=== PATIENT | male | born 1940 | race Caucasian/White ===

== ENCOUNTER 2017-07-16 11:35 | Inpatient (IN) | payer MEDICARE, OTHER ==
[2017-07-16] VITALS (12 sets, daily range): BP systolic 148–198; BP diastolic 77–103; PULSE 77–100; RESP 16–24; O2SAT 96–98
[~2017-07-16] VITALS: Ht 177.8 cm; Wt 95.2 kg
[~2017-07-16 11:35] MED LIST: CELE200 PO; DOCU-42 PO; GLPZ5T1 PO; GLU500 PO; METO50TA PO; OXYC-176 PO; VIS25 PO; Vancomycin Dose per Pharmacist XX ONE; ZES5 PO
[2017-07-16] MEDS ORDERED: 0.9% Sodium Chloride 1,000 ML IV ONE (11:55)
--- NOTE | 2017-07-16 12:01 | ED.REPORT ---
HPI-Extremity Problem Upper Date of Service Jul 16, 2017 ED Provider: History of Present Illness: 76-year-old male here for urinary incontinence and weakness. Last week he has been incontinent, mainly at night, of urine. He has been weaker, unsteady on his feet and falling more often than usual. Today he or his could not get him up so they called EMS. EMS found his blood sugar to be 34. 3 months ago he restarted on his diabetes and high blood pressure meds. No other cardiac or pulmonary history. No history of UTIs. He denies any cough, chest pain, shortness of breath. Today he states he fell, unsure what body part he landed on, there is a small skin abrasion on R elbow. palpable deformity and tenderness of elbow/distal humerous. pt states this is chronic. He denies hitting his head. He denies neck or back pain. He denies abdominal pain, nausea or vomiting. Nursing Notes Stated Complaint: GLF Nursing Notes Reviewed: Yes Allergies: Coded Allergies: Penicillins (Verified Allergy, Severe, 08/25/09) Scheduled Calcium Carbonate (Calcium Carbonate) 600 Mg Tablet 600 MG PO QAM Glipizide (Glipizide) 10 Mg Tablet 10 MG PO BIDWM Lisinopril / HCTZ 20-25 mg (Lisinopril / HCTZ 20-25 mg) 1 Each Tablet 1 EACH PO QAM Metformin (Glucophage) 1,000 Mg Tablet 1,000 MG PO BIDWM Simvastatin (Simvastatin) 10 Mg Tablet 10 MG PO HS General Time Seen by MD: 11:39 Chief Complaint Arm injury right Hx Obtained From: Patient, Spouse Arrived By: Ambulance Onset Occurred: Just prior to arrival Symptom Duration: 1 week Caused by: Fall on ground Location: : Arm right Severity: Current: Mild Severity: Maximum: Mild Associated with: Reports: Weakness Additional Notes: Urinary incontinence, unsteady on feet Pertinent Negative: Pt denies other symptoms Recent Healthcare: Recent doctor visit Similar Sx Previous: No Past Medical History Past Medical History Notes: DM, HTN Review of Systems Basic Review of Systems Eyes: Vision NL, No discharge ENT: Hearing NL, No pain, No nasal congestion, No pharyngeal pain Respiratory: No shortness of breath, No cough, No wheeze Cardiovascular: No chest pain, No dyspnea on exertion, No orthopnea, No parox noct dyspnea, No palpitations GI: No abdominal pain, No anorexia, No nausea, No vomiting Allergy / Immune: No allergy Psychiatric: Normal thought content Constitutional: Reports: Fatigue, Denies: Chills, Fever Musculoskeletal: Reports: Extremity pain, Denies: Back pain Neurologic: Reports: Bladder dysfunction, Problem walking, Weakness Complete sys rev & neg: except as marked. GI: Denies: Abdominal pain Male: Reports Incontinence Psychiatric: Denies: Anxiety, Change mental status, Confusion, Hallucinations, auditory, Hallucinations, visual Physical Exam Physical Exam Notes: 1500 mL of urine noted in his bladder with Damon insertion. Initial Vital Signs Vital Signs (First) Date Time Temp Pulse Resp B/P Pulse Ox O2 Delivery O2 Flow Rate FiO2 07/16/17 11:48 36.8 96 16 182/103 97 Room Air Initial VS: Reviewed, Vital signs abnormal General/Constitutional: Well-developed, Well-nourished Head / Eyes: Atraumatic, Normocephalic, PERRL ENT: Mucous membranes moist, Conjunctiva normal, No scleral icterus Neck: Supple, Non-tender, Full range of motion Respiratory: Breath sounds normal, Clear to auscultation, No respiratory distress Cardiovascular: Heart sounds normal, Intact distal pulses Neck: Supple, Full range of motion, No swelling, Non-tender Heart Rate / Rhythm: Positive: Tachycardia Skin tear right elbow. Not bleeding. pain at distal humerous, palpable deformity. pt states it is not new, hx of broken arm that is not repairable- [facility] Neurologic: Oriented X3, Speech NL, No motor deficits, No sensory deficits, CN II - XII intact, Memory NL Abdomen: Atraumatic, Soft, Non-tender, No guarding, No rebound, BS normoactive Distended appearing abdomen firm in Center. Nontender Excoriation present around penis and testicles and upper inner thighs. Very red and tender with blisters and sores. After cleansing area for catheter was inserted to prevent further excoriation and sores as he is incontinent. Urine is thick, malodorous, slightly erythematous. Interpretation & Diagnostics Lab Results Interpretation Result Diagram: 07/16/17 1130 07/16/17 1130 Test 07/16/17 11:30 07/16/17 12:35 07/16/17 13:04 White Blood Count 15.0th/mm3 (3.8-10.1) Red Blood Count 4.48mil/mm3 (4.40-5.80) Hemoglobin 13.1g/dL (13.8-17.2) Hematocrit 41.0% (41.0-50.0) Mean Corpuscular Volume 91.5fL (81-100) Mean Corpuscular Hemoglobin 29.2pg (27.0-35.0) Mean Corpuscular Hemoglobin Concent 32.0% (32.0-37.0) Red Cell Distribution Width 15.8% (12.3-15.4) Platelet Count 383bil/L (150-400) Neutrophils (%) (Auto) 85.3% (40-74) Lymphocytes (%) (Auto) 6.8% (14-46) Monocytes (%) (Auto) 6.8% (4-12) Eosinophils (%) (Auto) 0.5% (0-5) Basophils (%) (Auto) 0.2% (0-3) Sodium Level 146mEq/L (134-144) Potassium Level 4.1mEq/L (3.5-5.2) Chloride Level 107mEq/L (97-108) Carbon Dioxide Level 19mmol/L (18-29) Blood Urea Nitrogen 56mg/dL (8-27) Creatinine 2.04mg/dL (0.76-1.27) Estimat Glomerular Filtration Rate 34mL/min (>59) Glucose Level 29mg/dL (60-99) Calcium Level 9.7mg/dL (8.5-10.1) Magnesium Level 2.0mg/dL (1.6-2.6) Total Bilirubin 0.4mg/dL (0.0-1.2) Aspartate Amino Transf (AST/SGOT) 45U/L (0-50) Alanine Aminotransferase (ALT/SGPT) 26U/L (0-44) Alkaline Phosphatase 82U/L (25-160) Troponin T 0.031ug/L (0.0-0.011) Total Protein 8.4g/dL (6.4-8.4) Albumin 4.5g/dL (3.4-5.0) Procalcitonin 0.13ng/mL (0.00-0.08) Lactic Acid Level 0.9mmol/L (0.4-2.0) Urine Color Yellow (YELLOW) Urine Appearance Hazy (CLEAR,HAZY) Urine pH 5.0 (5.0-8.0) Urine Specific [place] 1.012 (1.003-1.035) Urine Protein 30mg/dL (NEG,TRACE) Urine Glucose (UA) Negativemg/dL (NEGATIVE) Urine Ketones Negativemg/dL (NEGATIVE) Urine Occult Blood Large (NEGATIVE) Urine Nitrite Negative (NEGATIVE) Urine Bilirubin Negative (NEGATIVE) Urine Urobilinogen Normalmg/dL (NORMAL) Urine Leukocyte Esterase Negative (NEGATIVE) Urine RBC Packed/hpf (0-2) Urine WBC 0-5/hpf (0-5) Urine Epithelial Cells Few/hpf (NONE-MOD) Urine Crystals None seen (NONE SEEN) Urine Bacteria None/hpf (NONE-FEW) Urine Hyaline Casts None/lpf (NONE) Urine Granular Casts None seen (NONE SEEN) Urine Waxy Casts None seen (NONE SEEN) Urine Red Blood Cell Casts None seen (NONE SEEN) Urine White Blood Cell Casts None seen (NONE SEEN) Urine Mucus None seen (None Seen) Urine Trichomonas None seen (NONE SEEN) Urine Yeast None (NONE SEEN) Urinalysis Comment None Urine Culture Reflexed Not indicated Urine Random Creatinine 48mg/dL (22-328) Urine Random Total Protein 87mg/dL (0-15) Urine Protein/Creatinine Ratio 1.81 (0-200) X-Ray Chest Interpretation Chest Xray Interpretation: PROCEDURE: X-RAY CHEST ONE VIEW, PORTABLE ([id number]) INDICATIONS: fall TECHNIQUE: One view of the chest was acquired. COMPARISON: None. FINDINGS: Surgical changes and devices: ORIF of right humerus. Lungs and pleura: No pleural effusions or pneumothorax. Lungs are clear. Mediastinum: Mediastinal contours appear normal. Heart size is normal. Bones and chest wall: No suspicious bony lesions. Overlying soft tissues appear unremarkable. IMPRESSION: No acute process. X-Ray Interpretation Xray Interpretation: PROCEDURE: X-RAY RIGHT ELBOW, TWO VIEWS ([id number]) INDICATIONS: pain, hx fx TECHNIQUE: 2 views of the elbow were acquired. COMPARISON: None. FINDINGS: Bones: No fractures or dislocations. No suspicious bony lesions. Soft tissues: No elbow joint effusion. No suspicious soft tissue calcifications. Multiple screws project over the soft tissues of the distal upper arm. IMPRESSION: Multiple screws projecting over the soft tissues. No acute fracture. No osseous lesion. If clinical suspicion and/or symptoms persist, further assessment with repeat plainfilms, or advanced imaging (e.g., CT, MRI, or bone scan) may be helpful for further assessment. Re-Eval/Medical Decision Med Decision/Clinical Course [address] moya, agrees 1435- Dr isidoro robledo examined pt. will get elbow xray, will dose with vancomycin for possible MRSA of groin. already recieved rocephin 2 gram. pt stable in room, eating. Xray stable- no new findings. 1510-pt to floor Discharge & Departure Shift Change Sign-Out Imaging Studies: Imaging discussed Procedures: Results discussed Response to Therapy: Improved Impression: Primary Impression: Hypoglycemia Additional Impressions: Cellulitis of male genitalia Elevated troponin I level Weakness Urinary retention Disposition: ADMITTED TO HOSPITAL Discharge Condition All VS Reviewed: Yes Condition: Stable EDSupervising Provider for APC: Abdirizak Kate MD Attending Statement I discussed patient with SIMONA Long. I evaluated the patient independently and agree with plan as above. In brief, 76-year-old male presenting with hypoglycemia. He also has a questionable scrotal cellulitis. Urine does not suggest infection. He has no complaints to me on my exam. He will be admitted to hospital. Vancomycin given for cellulitis. copies to: Abdirizak Kate MD, Linnea K ARNP Jul 16, 2017 12:01 Abdirizak Kate MD Jul 16, 2017 16:22
--- NOTE | 2017-07-16 12:14 | DRSVH ---
PROCEDURE: X-RAY CHEST ONE VIEW, PORTABLE ([id number]) INDICATIONS: fall TECHNIQUE: One view of the chest was acquired. COMPARISON: None. FINDINGS: Surgical changes and devices: ORIF of right humerus. Lungs and pleura: No pleural effusions or pneumothorax. Lungs are clear. Mediastinum: Mediastinal contours appear normal. Heart size is normal. Bones and chest wall: No suspicious bony lesions. Overlying soft tissues appear unremarkable. IMPRESSION: No acute process. Dictated by: Nisha Lui M.D. on 07/16/2017 at 12:11 Approved by: Nisha Lui M.D. on 07/16/2017 at 12:13
[2017-07-16] MEDS ORDERED: cefTRIAXone Inj 2,000 MG in Dextrose 5% Minibag Plus 50 ML IV ONE (12:15)
[2017-07-16 12:32] LABS: BASOPHILS % (AUTO) 0.2 % (0-3); EOSINOPHILS % (AUTO) 0.5 % (0-5); MONOCYTES % (AUTO) 6.8 % (4-12); Mean Corpuscular Hemoglobin 29.2 pg (27.0-35.0); Mean Corpuscular Volume 91.5 fL (81-100); NEUTROPHILS % (AUTO) 85.3 % (40-74); Platelet Count 383 bil/L (150-400)
[2017-07-16 12:42] LABS: TROPONIN T 0.031 ug/L (0.0-0.011)
[2017-07-16 13:33] LABS: APPEARANCE,URINE HAZY (CLEAR,HAZY); COLOR,URINE YELLOW (YELLOW)
[2017-07-16 13:35] LABS: OCCULT BLOOD,URINE LARGE (NEGATIVE); UROBILINOGEN,URINE NORMAL (NORMAL)
[2017-07-16] MEDS ORDERED: Dextrose 10% 250 ML IV ONE (14:05)
[2017-07-16] MEDS ORDERED: GLIP10TA10 PO (14:25)
[2017-07-16] MEDS ORDERED: CALC600T87 PO (14:25)
[2017-07-16] MEDS ORDERED: LISI1TAB11 PO (14:25)
[2017-07-16] MEDS ORDERED: METF1000 PO (14:25)
[2017-07-16] MEDS ORDERED: SIMV10TA4 PO (14:25)
[2017-07-16] MEDS ORDERED: Labetalol 5 mg/mL 20 mL Inj IVPUSH ONE ×2 (14:40→19:30)
[2017-07-16] MEDS ORDERED: Glucose 40% Oral Gel 15 Gm Tube PO PRN (14:40)
[2017-07-16] MEDS ORDERED: Ondansetron 2 mg/mL 2 mL Inj IVPUSH PRN (14:40)
[2017-07-16] MEDS ORDERED: Polyethylene Glycol (PEG) 17 Gm Powder PO PRN (14:40)
[2017-07-16] MEDS ORDERED: Alum-Mag Hydrox-Simeth 30 mL Suspension PO PRN (14:40)
[2017-07-16] MEDS ORDERED: Dextrose 10% 250 ML IV PRN (14:50)
[2017-07-16] MEDS ORDERED: Vancomycin Inj 2,000 MG in 0.9% Sodium Chloride 500 ML IV ONE (14:55)
--- NOTE | 2017-07-16 15:00 | DRSVH ---
PROCEDURE: X-RAY RIGHT ELBOW, TWO VIEWS ([id number]) INDICATIONS: pain, hx fx TECHNIQUE: 2 views of the elbow were acquired. COMPARISON: None. FINDINGS: Bones: No fractures or dislocations. No suspicious bony lesions. Soft tissues: No elbow joint effusion. No suspicious soft tissue calcifications. Multiple screws p roject over the soft tissues of the distal upper arm. IMPRESSION: Multiple screws projecting over the soft tissues. No acute fracture. No osseous lesion. I f clinical suspicion and/or symptoms persist, further assessment with repeat plainfilms, or advanced imaging (e.g., CT, MRI, or bone scan) may be helpful for further assessment. Dictated by: Nisha Lui M.D. on 07/16/2017 at 14:58 Approved by: Nisha Lui M.D. on 07/16/2017 at 14:59
[2017-07-16] MEDS: Insulin LISPRO 300 Unit/3 mL Inj SUBQ SCH ×2 (17:30→21:21)
[2017-07-16] MEDS: Linezolid Inj 600 MG in IV Premix 1 EACH IV SCH (18:31)
--- NOTE | 2017-07-16 18:37 | PCM.HPMED ---
Subjective Date of Service Jul 16, 2017 Primary Provider: Admitting Physician: Los Arambula MD [facility] Attending Physician: Los Arambula MD Admit Status: From the Emergency Department Chief Complaint: Weakness History of Present Illness: Dimitri Giffrod is a 76-year-old man with past medical history remarkable for hypertension and type II diabetes mellitus [id number] who presents to the [facility] ED by EMS after a ground-level fall and unable to get up. The patient lives alone and does not use a walker or cane to ambulate and states that his been having increasing difficulty with ambulation. He does not walk often for exercise typically only around his trailer into his car and back. The patient states that today he fell and was unable to get up so a neighbor called for help. The patient denies any pain or injury from the fall at this time. The patient has noticed increased urinary frequency but denies any increased urgency or pain on urination or pain with defecation. The patient denies any unusual urethral discharge. The patient denies any risky sexual contact or ever having a history of sexually transmitted disease. The patient recently started oral antihyperglycemic medication by a [place] physician. The patient states that prior to several years ago he had not been seen by a physician he denies any history of chronic kidney disease or ever being told that he has protein or blood in his urine. Patient denies chest pain, belly pain, shortness of breath, nausea, diarrhea, headaches, swelling in his hands or feet. Review of Systems: A comprehensive review of systems is done and all are negative except for what is included in the history of present illness. Allergies Coded Allergies: Penicillins (Verified Allergy, Severe, 08/25/09) Home Medications Calcium Carbonate (Calcium Carbonate) 600 Mg Tablet 600 MG PO QAM Glipizide (Glipizide) 10 Mg Tablet 10 MG PO BIDWM Lisinopril / HCTZ 20-25 mg (Lisinopril / HCTZ 20-25 mg) 1 Each Tablet 1 EACH PO QAM Metformin (Glucophage) 1,000 Mg Tablet 1,000 MG PO BIDWM Simvastatin (Simvastatin) 10 Mg Tablet 10 MG PO HS PMH High blood pressure Type 2 Diabetes mellitus [id number] Surgical History Right arm ORIF for a humeral fracture in 2008 Ruptured appendix in the 1980s Left leg surgery for fracture Family History Patient's mother in her late 80s from an unknown heart condition Patient's father in his late 80s from an unknown cancer Patient has a sister alive 97 years old reportedly healthy Patient has a brother alive at 85 on no medications Social History Occupation: retired Hx Alcohol Use: No Hx Substance Use: No Hx Tobacco Use: Yes Smoking Status: Former Smoker Years of Smokin Living Arrangement: Alone Exam Vital Signs Vital Sign - Last Date Time Temp Pulse Resp B/P Pulse Ox O2 Delivery O2 Flow Rate FiO2 07/16/17 16:48 148/78 07/16/17 15:54 93 07/16/17 15:34 36.9 16 97 Room Air Exam General: Elderly male appearing in no acute distress lying comfortably in bed Eyes: Pupils equal round and reactive to light, extraocular motion intact, anicteric sclera, noninjected conjunctiva HENT: Normocephalic atraumatic, moist mucous membranes without central cyanosis , oropharynx clear without purulent exudate or cobblestoning mucosa, notable rhinophyma Neck: Supple, trachea midline, without thyromegaly or JVD Cardiovascular: Regular rate and regular rhythm, S1-S2 present, systolic ejection murmur noted at right upper sternal border, no rubs or gallops noted Lungs: Clear to auscultation bilaterally without wheezing rales or rhonchi Abdomen: Lower old midline surgical scar, Soft, nontender, protuberant but nondistended, tympanic to percussion, normal active bowel sounds, without organomegaly Extremities: No cyanosis clubbing or edema noted, pulses intact bilaterally at dorsalis pedis and radial : Damon catheter in place with some blood noted in the tubing, notable redness and warmth over scrotum and penis without noted ulcerations however nursing had applied cream and powder previously making visualization difficult Skin: Warm and dry MSK: Strength intact bilaterally at wrapper cashier, plantar and dorsi flexion, biceps and triceps not tested due to chronic pain in his right upper extremity since ORIF in 2008 Neuro: Nonfocal neurologic exam, cranial nerves II through XII intact, sensation intact in extremities Psych: Normal mood and affect Lab and Diagnostics Result Diagram: 07/16/17 1130 07/16/17 1130 X-Rays, CTs and MRIs X-RAY RIGHT ELBOW, TWO VIEWS IMPRESSION: Multiple screws projecting over the soft tissues. No acute fracture. No osseous lesion. If clinical suspicion and/or symptoms persist, further assessment with repeat plainfilms, or advanced imaging (e.g., CT, MRI, or bone scan) may be helpful for further assessment. Approved by: Nisha Lui M.D. on 07/16/2017 at 14:59 X-RAY CHEST ONE VIEW, PORTABLE IMPRESSION: No acute process. Approved by: Nisha Lui M.D. on 07/16/2017 at 12:13 Assessment & Plan Dimitri Gifford is a 76-year-old man with past medical history remarkable for hypertension and type II diabetes mellitus [id number] who presents to the [facility] ED by EMS after a ground-level fall and unable to get up. Acute hypoglycemia in chronic type II diabetes mellitus dnu-njezotn-cjctzrzhi - Glucose of 56 noted at admission - The patient admits to being recently started on oral anti-hyperglycemics glipizide, low blood glucose could explain weakness and difficulty ambulating however patient explains that this has been a chronic ongoing process of worsening weakness and difficulty ambulating - IV dextrose given an ED, with subsequent improvement in blood glucose - Holding glipizide - Low-dose correction scale insulin while inpatient and monitor for hypoglycemic episodes - Diabetic diet - A1c ordered - Monitor Acute cellulitis of the inguinal and genitals - WBC count of 15,000 with neutrophil predominance of 85% consistent with possible bacterial infection, pro-calcitonin appears negative at 0.13 - Noted redness and very mild tenderness to palpation of the area however the patient was unaware of this and unconcerned - ED did initially consider possible urinary tract infection with overlying cellulitis given imbalance and increased urinary frequency and started the patient on Rocephin, and vancomycin for cellulitis - UA was negative for signs of infection, however nursing staff noted possible purulent drainage around Damon catheter - Chlamydia and gonorrhea NAAT - Rocephin and linezolid for cellulitis possibly associated with urinary tract sources - Nystatin cream and powder for possible yeast infection Acute kidney injury with Acute hematuria - Creatinine of 2 on admission no baseline laboratories at this time as last time the patient was admitted with some 2009 - Blood noted on UA with packed RBCs, Likely secondary to traumatic Damon placement as UA noted packed RBCs however Damon tubing appears to have streaked blood - Consideration for possible chronic prostatitis with chronic increased urinary frequency however would expect to see some bacteria in urine - Patient likely has some chronic kidney disease given long-standing hypertension and type II diabetes mellitus - [facility] depending [facility] improvement overnight - Renal ultrasound ordered given considerable hypertension - Urine protein creatinine ratio ordered Chronic deconditioning - Patient describes only thing brought into the hospital due to an inability to get up after falling, the patient states that he does not use a cane or walker to ambulate but he believes that he should at least use a cane - PT evaluation Acute on chronic hypertension - Patient describes a baseline blood pressure above 150 with previous regular highs in the 190s - Systolic blood pressure of up to 190 on admission improved to 148 without medication - Patient is on lisinopril hydrochlorothiazide which will be held given the AK I - Labetalol IV 10 mg available when necessary for systolic blood pressures greater than 160 if pulse is greater than 70 Acute elevated troponins of unknown significance - Likely related to elevated creatinine which is possibly baseline - Urine protein creatinine ratio to determine significance of kidney disease - Patient denies chest pain, nausea, shortness of breath - Monitor DVT prophylaxis: Heparin GI prophylaxis: None indicated CODE STATUS is full code The patient is admitted to observation status with expected length of stay less than 2 midnights given presenting symptoms likely diagnosis, possible complications, and require treatments. Pain Evaluation: Adequate Pain Control GI Prophylaxis: Not indicated VTE Prophylaxis: Sub-Q Heparin (Unfractionated) Attending Statement The patient was seen and examined together with Dr. Landon on 07/16/2017 and I agree with the history, exam and plan as outlined in the note above. Ron Landon DO Jul 16, 2017 18:37 Los Arambula MD Jul 20, 2017 10:14
[2017-07-17] VITALS (7 sets, daily range): BP systolic 133–198; BP diastolic 72–104; PULSE 62–84; RESP 20–22; O2SAT 95–97
[2017-07-17] MEDS: Heparin 5,000 Unit/mL Inj SUBQ SCH ×3 (01:23→17:37)
[2017-07-17] MEDS ORDERED: Labetalol 5 mg/mL 20 mL Inj IVPUSH PRN (05:15)
[2017-07-17] MEDS: Linezolid Inj 600 MG in IV Premix 1 EACH IV SCH ×2 (06:01→07:59)
--- NOTE | 2017-07-17 06:29 | NUR ---
Restless Assumed care of pt at 1930. Pt. a/o, denies pain, or discomfort with the exception being hungry. Waiting on [facility] to complete evaluation, USD postponed eval. until Monday am - pt. received meal as ordered. NPO after midnight. Remains hypertensive as charted, notified (Barrera) orders received for 2nd dose 10mg Labetolol - given. Tele: SR rate in the 60's.
[2017-07-17] MEDS: Insulin LISPRO 300 Unit/3 mL Inj SUBQ SCH ×4 (07:57→21:02)
[2017-07-17] MEDS: cefTRIAXone Inj 2,000 MG in Dextrose 5% Minibag Plus 50 ML IV SCH (08:05)
--- NOTE | 2017-07-17 10:37 | NUR ---
Social Work: Initial Assessment/Multidisciplinary Rounds D: Per EMR review, pt is a 76 year old male admitted for hypoglycemia, elevated trop. Patient has opted to use his [facility] benefits for admission; patient also has Medicare part A & B with no supplement or LTC. PCP is through the [facility]. NOK is Viviana alcala, spouse, . Advanced directives not completed- information provided. Readmit score is low, 1/8. Pt discussed in Multidisciplinary rounds. Capacity for self care discussed; patient is I at baseline and lives with his . PT has completed assessment with recommendation for SNF. The patient might be able to use his VA benefit for SNF stay as he is currently listed as n observation patient. GEOSPATIAL TECHNOLOGIST met with the patient and at bedside. Social work/dcp role explained, contact information and discharge planning checklist provided. See initial assessment. Patient lives with his in an RV in [place] with 5 steps to enter. patient uses no DME but will require a platform walker per PT. Patient has never had HH or Skilled rehab. GEOSPATIAL TECHNOLOGIST introduced the topic of discharge planning including HH or SNF. Patient and are both receptive to the SNF option and would prefer to stay in [place] if possible. GEOSPATIAL TECHNOLOGIST explained possible barriers to this occurring specifically if patient had to use his VA benefit for SNF. They are receptive to exploring all the [place] SNF contracts. [facility] SNF CHOICE LIST PROVIDED. If they had to use VA benefits their 1st preference would be for [facility] in [place] with their second being [facility] in [place]. Orders have not been placed at this time; GEOSPATIAL TECHNOLOGIST has alerted [employer] Systems Administrator to patient's preferences and will provide referrals once CM orders are finalized. A: Pt who will likely require skilled rehab at time of discharge for continued strengthening. Patient currently listed at observation and will need to use VA benefits for SNF. P: Evolving; Case management to provide referrals to pt's SNF preferences once orders are received. GEOSPATIAL TECHNOLOGIST to continue to follow to assess for unmet discharge needs and to determine if patient may be eligible to use Medicare Benefits if patient meets inpatient criteria and has qualifying stay. GERALD Morillo Addendum: 07/17/17 at 1049 by INGRID CAAL SS Amended: Links added.
--- NOTE | 2017-07-17 10:54 | NUR ---
Swallow eval order cancelled. Per nursing no concerns re: dysphagia. Re-refer to ST with new/worsening symptoms.
--- NOTE | 2017-07-17 11:20 | NUR ---
Spoke with Kathleen at [facility] in patient access, this patient is non service connected but also hold MCR A & B. [facility]NER note and this patient will not have coverage for SNF under his benefits since there is no service connection. Patient is currently in OBS status and we can not send referrals that will be covered by insurance. Updated BUSINESS PARTNER
[2017-07-17 12:21] LABS: BASOPHILS % (AUTO) 0.3 % (0-3); EOSINOPHILS % (AUTO) 0.7 % (0-5); MONOCYTES % (AUTO) 9.5 % (4-12); Mean Corpuscular Hemoglobin 29.8 pg (27.0-35.0); Mean Corpuscular Volume 91.1 fL (81-100); Platelet Count 250 bil/L (150-400)
--- NOTE | 2017-07-17 13:08 | NUR ---
ST unable to complete swallow eval. Unable to complete swallow eval due to pt NPO status for procedure. RN reports pt choking on his own saliva. ST to re-attempt eval tomorrow.
[2017-07-17] MEDS: Nystatin 100,000 Unit/Gm 15 Gm Powder TOPICAL SCH ×2 (13:15→21:01)
--- NOTE | 2017-07-17 14:31 | NUR ---
High BP Pt BP 199/99. HR 69, MD aware. Pt administered 10mg Labetalol IV push. Will continue to monitor. Addendum: 07/17/17 at 1512 by GAVIOTA ROSARIO RN BP reassessed at 190/95. Pt administered PO 100mg Labetalol and 2.5mg PO amlodipine per orders. Will continue to monitor.
--- NOTE | 2017-07-17 15:00 | NUR ---
Case Management: Clarification of patient status: inpatient per MD order 07/17/17. Valerie Hankins RN
--- NOTE | 2017-07-17 15:52 | NUR ---
Inpatient Wound Nurse Patient seen for pressure injury to soft tissue of plantar surfaces of most toes due to overgrown toenails. He also has skin tear to R elbow. All nails are grossly overgrown, blackened, and crumbling with fungus. Multiple nails noted with onychogryphosis, growing into medial/lateral and plantar surfaces of toes. Most nails would be benefitted from sanding debridement which is not completed in hospital setting due to release of airborne irritants. Nails were trimmed back as well as possible with clippers and edges cleaned. Multiple areas of stage 1 PI improved by end of care, within approximately 30 minutes. A small tear to L great toe was sustained, this coagulated within a couple of minutes and required no dressing. R great toe is grossly thickened and unable to be pared down with clippers. A grade 3 skin tear is noted to R elbow, about 3 cm L x 1.5 cm W. Since no debridement is needed for this wound, no clear-adhesive dressing is advised. Once clear adhesive dressing was removed, a layer of thin, yellow slough was cleansed away with NS and sterile gauze. Wound bed dull pink and firm. Wound was covered with bordered 4x4 Mepilex. Patient is unable to manage hygiene independently. He should see podiatry or certified foot care nurse for ongoing foot care needs.
--- NOTE | 2017-07-17 17:01 | DRSVH ---
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 COMPARISON: None. FINDINGS: Aortic peak systolic velocity: Not well-seen. Right side: Miller-scale imaging: Kidney is 14.1 cm long; renal cortical thickness is 1.7 cm. there is moderate h ydronephrosis. No nephrolithiasis. Renal cortex is normal in echogenicity. No suspicious solid cecilia al masses. Proximal renal artery peak systolic velocity: Not seen Mid renal artery peak systolic velocity: Not seen Distal renal artery peak systolic velocity: 48 cm/s. Renal vein: Patent, without thrombus. Peak renal/aortic ratio (RAR): N./A. Left side: Miller-scale imaging: Kidney is 14.6 cm long; renal cortical thickness is 1.3 cm. there is moderate h ydronephrosis. Multiple left-sided renal stones are seen. The largest measures up to 1.6 cm, inferi konstantin. Renal cortex is normal in echogenicity. No suspicious solid renal masses. A simple appearing left renal cyst is seen that measures 4.9 x 4 x 4.3 cm. Proximal renal artery peak systolic velocity: Not seen Mid-renal artery peak systolic velocity: Not seen Distal renal artery peak systolic velocity: Not seen Renal vein: Patent, without thrombus. Peak renal/aortic ratio (RAR): N./A. The bladder is grossly enlarged, measuring greater than 5 L. A Damon catheter is present. IMPRESSION: Moderate hydronephrosis with a grossly distended urinary bladder. The Damon catheter is regarded to be nonfunctional. Poor visualization of numerous arterial structures. The study is nondiagnostic for renal artery sten osis. Nonobstructing left-sided kidney stones are seen. Incidental note is made of: 4.9 cm renal cyst Note: Concordant preliminary findings given by the petrographer upon the completion of the examination to nurse Negin Sousa at 4:29 PM on July 17, 2017. Dictated by: David Doshi M.D. on 07/17/2017 at 16:54 Approved by: David Doshi M.D. on 07/17/2017 at 16:58
--- NOTE | 2017-07-17 17:12 | PCM.PNMED ---
Subjective Date of Service Jul 17, 2017 Subjective Patient was seen and examined. Patient is resting comfortably in bed. Physical therapy came by to work with patient today, but stated that his toenails were too long to safely ambulate. Wound care thankfully came later in the day and clipped his toenails. No acute overnight events. Exam Vital Signs Vital Sign - Last Date Time Temp Pulse Resp B/P Pulse Ox O2 Delivery O2 Flow Rate FiO2 07/17/17 16:36 36.9 66 20 151/72 95 Room Air Intake and Output 07/16/17 07/16/17 07/17/17 Cumulative From/Thru 15:00 23:00 07:00 07/16/17 11:48 - 07/17/17 06:09 Intake Total 1250 ml 0 ml 720 ml 1970 ml Output Total 1500 ml 200 ml 1700 ml Balance -250 ml 0 ml 520 ml 270 ml Intake Oral 0 ml 400 ml 400 ml IV Total 1250 ml 320 ml 1570 ml Output Urine Total 1500 ml 200 ml 1700 ml Exam General: No acute distress, well-developed, well-nourished, appropriately interactive HEENT: Normocephalic, atraumatic. External ears without defect. Pupils equal, round, and reactive to light and accommodation. Anicteric sclerae, moist conjunctivae, and no lid lag. Oropharynx free of erythema and cobble stoning with moist mucosa. Neck: Supple with full range of motion. No jugular venous distension. No bruits. No lymphadenopathy or thyromegaly. Cardiovascular: Regular rate and rhythm with 2/6 pansystolic murmur Pulmonary: Clear to auscultation bilaterally with no crackles, wheezes, or rhonchi. Normal respiratory effort with no use of accessory muscles. Abdomen: Bowel tones present. Abdomen is firm, but nontender and nondistended. No masses noted. Damon catheter in place with pink tinged fluid in tube. Extremities: Toenails are long and curling over his toes posteriorly. No peripheral edema. Skin: Bilateral erythematous nonraised rash on inner thighs covered with nystatin cream. Patient states it is nontender. Neurological: Cranial nerves grossly intact. Normal muscle strength, tone, and bulk. Reflexes, coordination, and sensory function within normal limits. No known gait impairment. Psychiatric: Normal mood and affect. Alert and oriented to person, place, and time. IVs and Medications Medications Reviewed: Medications were reviewed in detail Lab and Diagnostics Result Diagram: 07/17/17 1215 07/17/17 1215 X-Rays, CTs and MRIs X-RAY RIGHT ELBOW, TWO VIEWS IMPRESSION: Multiple screws projecting over the soft tissues. No acute fracture. No osseous lesion. If clinical suspicion and/or symptoms persist, further assessment with repeat plainfilms, or advanced imaging (e.g., CT, MRI, or bone scan) may be helpful for further assessment. Approved by: Nisha Lui M.D. on 07/16/2017 at 14:59 X-RAY CHEST ONE VIEW, PORTABLE IMPRESSION: No acute process. Approved by: Nisha Lui M.D. on 07/16/2017 at 12:13 Additional Diagnostics Renal artery ultrasound performed 07/17/2017 IMPRESSION: Moderate hydronephrosis with a grossly distended urinary bladder. The Damon catheter is regarded to be nonfunctional. Poor visualization of numerous arterial structures. The study is nondiagnostic for renal artery stenosis. Nonobstructing left-sided kidney stones are seen. Assessment & Plan Dimitri Gifford is a 76-year-old man with past medical history remarkable for hypertension and type II diabetes mellitus [id number] who presents to the [facility] ED by EMS after a ground-level fall and unable to get up. Acute hypoglycemia in chronic type II diabetes mellitus [id number] - Glucose of 56 noted at admission - The patient admits to being recently started on oral anti-hyperglycemics glipizide, low blood glucose could explain weakness and difficulty ambulating however patient explains that this has been a chronic ongoing process of worsening weakness and difficulty ambulating - IV dextrose given an ED, with subsequent improvement in blood glucose - Holding glipizide - Low-dose correction scale insulin while inpatient and monitor for hypoglycemic episodes - Diabetic diet - A1c 5.6 - Monitor Acute cellulitis of the inguinal and genitals - WBC count downtrending, pro-calcitonin appears negative at 0.17 - Continue Rocephin for possible cellulitis discontinue linezolid and vancomycin - UA was negative for signs of infection, however nursing staff noted possible purulent drainage around Damon catheter - Chlamydia and gonorrhea NAAT - Nystatin powder for possible yeast infection Acute kidney injury with Acute hematuria - Creatinine of 2 on admission no baseline laboratories at this time as last time the patient was admitted with some 2009 - Blood noted on UA with packed RBCs, Likely secondary to traumatic Damon placement as UA noted packed RBCs however Damon tubing appears to have streaked blood - Consideration for possible chronic prostatitis with chronic increased urinary frequency however would expect to see some bacteria in urine - Patient likely has some chronic kidney disease given long-standing hypertension and type II diabetes mellitus - [facility] - Renal ultrasound performed today demonstrating a severely distended bladder with moderate hydronephrosis - Reevaluate Damon patency - Urine protein creatinine ratio 1.81 Chronic deconditioning - Patient describes only thing brought into the hospital due to an inability to get up after falling, the patient states that he does not use a cane or walker to ambulate but he believes that he should at least use a cane - PT evaluation now that his toenails have been clipped Acute on chronic hypertension - Patient describes a baseline blood pressure above 150 with previous regular highs in the 190s - Systolic blood pressure of up to 190 on admission improved to 148 without medication, but spiked today requiring antihypertensive medications - Patient is on lisinopril hydrochlorothiazide which will be held given the AK I - Labetalol IV 10 mg available when necessary for systolic blood pressures greater than 160 if pulse is greater than 70 - Started on amlodipine2.5mg QD and labetalol 100 mg by mouth twice a day Acute elevated troponins of unknown significance - Likely related to elevated creatinine which is possibly baseline - Patient denies chest pain, nausea, shortness of breath - Monitor DVT prophylaxis: Heparin GI prophylaxis: None indicated CODE STATUS is full code GI Prophylaxis: Not indicated VTE Prophylaxis: Sub-Q Heparin (Unfractionated) Resuscitation Status: CPR: Attempt Resuscitation Attending Statement The patient was seen and examined together with Dr. Medina on 07/17/17 and I have added additional information to the note above. Zack Medina DO Jul 17, 2017 17:12 Chelo Martinez DO Jul 17, 2017 17:52
--- NOTE | 2017-07-17 17:48 | NUR ---
Case Management: IMM explained to patient at 1730, all questions answered. Signed original placed in chart, copy given to patient. Pt requested Medicare be noted as primary insurance as he is not [facility]. Marisol Godfrey RN
[2017-07-18] VITALS (8 sets, daily range): BP systolic 115–181; BP diastolic 62–98; PULSE 56–74; RESP 16–20; O2SAT 95–97
[2017-07-18] MEDS: Heparin 5,000 Unit/mL Inj SUBQ SCH ×4 (01:24→23:41)
[2017-07-18 04:21] LABS: BASOPHILS % (AUTO) 0.2 % (0-3); EOSINOPHILS % (AUTO) 1.7 % (0-5); MONOCYTES % (AUTO) 9.8 % (4-12); Mean Corpuscular Hemoglobin 29.4 pg (27.0-35.0); Mean Corpuscular Volume 92.2 fL (81-100); NEUTROPHILS % (AUTO) 77.6 % (40-74); Platelet Count 231 bil/L (150-400)
--- NOTE | 2017-07-18 05:37 | NUR ---
Urine output/Rest Assumed care ~1930, a/o, denies pain or discomfort. Damon irrigation performed - output this shift >1000 mL pink tinged urine. Indication of confusion r/t glucose checks and BS management, will request MD to address diabetes education. Rested for extended period, with eyes closed. VSS, Tele: SR 60's - 70's.
[2017-07-18] MEDS: Insulin LISPRO 300 Unit/3 mL Inj SUBQ SCH ×4 (08:59→20:33)
[2017-07-18] MEDS: Nystatin 100,000 Unit/Gm 15 Gm Powder TOPICAL SCH ×2 (09:01→20:32)
[2017-07-18] MEDS: cefTRIAXone Inj 2,000 MG in Dextrose 5% Minibag Plus 50 ML IV SCH (09:02)
--- NOTE | 2017-07-18 09:25 | NUR ---
Diet: pt tolerating diet with no s/s aspiration. Swallow evaluation not warranted for this pt; re-refer to ST with new/worsening symptoms.
--- NOTE | 2017-07-18 11:33 | PCM.PNMED ---
Subjective Date of Service Jul 18, 2017 Subjective Patient is seen resting comfortably in bed. He denies any discomfort. This is of great surprise however, as it was discovered on his CT of his abdomen and pelvis today that he had a severely distended urinary bladder with moderate bilateral hydronephrosis and a Damon catheter which was seen to be positioned in the patient's prostate. The nurse advanced the Damon catheter and promptly drained over 5 L of urine within 20 minutes. Exam Vital Signs Vital Sign - Last Date Time Temp Pulse Resp B/P Pulse Ox O2 Delivery O2 Flow Rate FiO2 07/18/17 11:21 72 07/18/17 08:00 36.7 20 181/88 97 Room Air Intake and Output 07/17/17 07/17/17 07/18/17 Cumulative From/Thru 15:00 23:00 07:00 07/16/17 11:48 - 07/18/17 06:30 Intake Total 375 ml 400 ml 2745 ml Output Total 900 ml 1075 ml 3675 ml Balance -525 ml -675 ml -930 ml Intake Oral 0 ml 400 ml 800 ml IV Total 375 ml 1945 ml Output Urine Total 900 ml 1075 ml 3675 ml Exam General: No acute distress, well-developed, well-nourished, appropriately interactive HEENT: Normocephalic, atraumatic. Neck: Supple with full range of motion. No jugular venous distension. No bruits. No lymphadenopathy or thyromegaly. Cardiovascular: Regular rate and rhythm with systolic ejection murmur noted over right sternal border Pulmonary: Clear to auscultation bilaterally with no crackles, wheezes, or rhonchi. Normal respiratory effort with no use of accessory muscles. Abdomen: Bowel tones present. Firm, nontender, with a large mass palpable in the epigastric area. CT scan revealed this to be a distended urinary bladder. Extremities: No clubbing, cyanosis, edema, or lymphadenopathy appreciated. Skin: Cellulitis of inguinal region appears to be much improving with decreased erythema and no tenderness Neurological: Cranial nerves grossly intact. Normal muscle strength, tone, and bulk. Psychiatric: Normal mood and affect. Alert and oriented to person, place, and time. IVs and Medications Medications Reviewed: Medications were reviewed in detail Lab and Diagnostics Result Diagram: 07/18/17 0400 07/18/17 0400 X-Rays, CTs and MRIs X-RAY RIGHT ELBOW, TWO VIEWS IMPRESSION: Multiple screws projecting over the soft tissues. No acute fracture. No osseous lesion. If clinical suspicion and/or symptoms persist, further assessment with repeat plainfilms, or advanced imaging (e.g., CT, MRI, or bone scan) may be helpful for further assessment. Approved by: Nisha Lui M.D. on 07/16/2017 at 14:59 X-RAY CHEST ONE VIEW, PORTABLE IMPRESSION: No acute process. Approved by: Nisha Lui M.D. on 07/16/2017 at 12:13 Additional Diagnostics Renal artery ultrasound performed 07/17/2017 IMPRESSION: Moderate hydronephrosis with a grossly distended urinary bladder. The Damon catheter is regarded to be nonfunctional. Poor visualization of numerous arterial structures. The study is nondiagnostic for renal artery stenosis. Nonobstructing left-sided kidney stones are seen. Assessment & Plan Dimitri Gifford is a 76-year-old man with past medical history remarkable for hypertension and type II diabetes mellitus [id number] who presents to the [facility] ED by EMS after a ground-level fall and unable to get up. Acute hypoglycemia in chronic type II diabetes mellitus [id number] - Glucose of 56 noted at admission - The patient admits to being recently started on oral anti-hyperglycemics glipizide, low blood glucose could explain weakness and difficulty ambulating however patient explains that this has been a chronic ongoing process of worsening weakness and difficulty ambulating - IV dextrose given an ED, with subsequent improvement in blood glucose - Holding glipizide - Low-dose correction scale insulin while inpatient and monitor for hypoglycemic episodes - Diabetic diet - A1c 5.6 - Monitor Acute cellulitis of the inguinal and genitals, stable - WBC count downtrending and erythema is decreasing - Continue Rocephin for possible cellulitis - UA was negative for signs of infection, however nursing staff noted possible purulent drainage around Damon catheter - Chlamydia and gonorrhea NAAT - Nystatin powder for possible yeast infection Acute kidney injury with Acute hematuria, active - Creatinine of 2 on admission no baseline laboratories at this time as last time the patient was admitted with some 2009 - Blood noted on UA with packed RBCs, Likely secondary to traumatic Damon placement. - Patient likely has some chronic kidney disease given long-standing hypertension and type II diabetes mellitus - Renal ultrasound performed demonstrating a severely distended bladder with moderate hydronephrosis - Damon catheter was flushed, and repeated bladder scans demonstrated residuals of only 30-50 mL - CT scan of the abdomen and pelvis today demonstrated a severely distended bladder with bilateral hydronephrosis of a chronic appearing nature per discussion with radiology - Nurse repositioned Damon catheter, and promptly drained nearly 6 L of urine - We will monitor kidney function and consider consult to urology for urinary tract outlet obstruction Chronic deconditioning - Patient describes only thing brought into the hospital due to an inability to get up after falling, the patient states that he does not use a cane or walker to ambulate but he believes that he should at least use a cane - PT evaluation now that his toenails have been clipped Acute on chronic hypertension - Patient describes a baseline blood pressure above 150 with previous regular highs in the 190s - Systolic blood pressure of up to 190 on admission and continues to require close monitoring - Patient is on lisinopril hydrochlorothiazide which will be held given the AK I - Labetalol IV 10 mg available when necessary for systolic blood pressures greater than 160 if pulse is greater than 70 - Started on amlodipine 10mg QD and labetalol 100 mg by mouth twice a day Acute elevated troponins of unknown significance - Likely related to elevated creatinine which is possibly baseline - Patient denies chest pain, nausea, shortness of breath - Monitor DVT prophylaxis: Heparin GI prophylaxis: None indicated CODE STATUS is full code GI Prophylaxis: Not indicated VTE Prophylaxis: Sub-Q Heparin (Unfractionated) Resuscitation Status: CPR: Attempt Resuscitation Attending Statement The patient was seen and examined together with Dr. Medina on 07/18/17 and I agree with the history, exam and plan as outlined in the note above. Zack Medina DO Jul 18, 2017 11:32 Chelo Martinez DO Jul 20, 2017 15:06
--- NOTE | 2017-07-18 14:03 | NUR ---
INTERMEDIATE TRANSFER : Gave access and faxed facesheet to [facility] per [facility] [employer] and orders. Addendum: 07/18/17 at 1538 by LINDA TRAMMELL [facility] can accept pending bed availability.
--- NOTE | 2017-07-18 15:41 | DRSVH ---
PROCEDURE: CT ABDOMEN AND PELVIS WITHOUT CONTRAST ([id number]) INDICATIONS: fluid in abdomen TECHNIQUE: Noncontrast 5 mm thick sections acquired from the diaphragms to the symphysis. 5 mm coronal and sagi ttal reformats were then performed. For radiation dose reduction, the following was used: automated exposure control, adjustment of mA and/or kV according to patient size. COMPARISON: None. FINDINGS: Image quality: Good ABDOMEN: Lung bases: Lung bases are clear. Heart size is normal. Solid organs: Liver and spleen are normal in size. Gallbladder reveals approximately 4-5 mm gallsto rip. Pancreas is normal in contours. No adrenal nodules. Kidneys are normal in size. There are cecilia al cysts. In addition there is bilateral moderate hydronephrosis. There are 4-3 mm size nonobstructin g central calculi in the left kidney. No calcification seen on the right. There is prominent hydroure ter down to the bladder. The bladder is prominently distended measuring approximately 19 x 21 x 21 cm . Prostate is moderately enlarged and prominently enlarged. There is a Damon catheter within the prosta te. These urologic findings were called to the resident in charge at this time Dr Medina [phone] at t he time of the dictation Peritoneum and bowel: Unenhanced bowel loops demonstrate normal wall thickness and caliber. No free fluid or air. There are multiple diverticula but no diverticulitis. Nodes and vessels: No retroperitoneal or mesenteric adenopathy by size criteria. Aorta and inferior vena cava are normal in caliber. Miscellaneous: No ventral hernias. PELVIS: Genitourinary: Bladder wall thickness is normal. Miscellaneous: No inguinal hernias or adenopathy. Bones: No suspicious bony lesions. No vertebral body compression fractures. IMPRESSION: 1. Moderate to bilateral renal obstruction, hydroureter bilaterally, prominently distended bladder an d enlarged prostate. Damon catheter position was questioned. These findings are called to the clinici an in charge of the patient at the time of this dictation. 2. Multiple colonic diverticula without diverticulitis. No ascites. Dictated by: Demetri Dozier M.D. on 07/18/2017 at 15:29 Approved by: Demetri Dozier M.D. on 07/18/2017 at 15:38
--- NOTE | 2017-07-18 17:50 | NUR ---
Cuellar Catheter Pt cuellar catheter on CT scan showed that it was placed in enlarged prostate. Catheter was advanced past the enlarged prostate with significant pt discomfort. Pt had immediate output of 5800ml. aware. Pt started on Flomax. Upper abdominal area is now soft. Pt denies any discomfort with abdominal palpation. Addendum: 07/18/17 at 1841 by GAVIOTA ROSARIO RN Pt output an additional 1800 mls of urine. Urine is tinged medium red with some small clots present. Pt abdomen soft, non-tender with palpation. aware.
[2017-07-19] VITALS (7 sets, daily range): BP systolic 133–142; BP diastolic 65–77; PULSE 62–87; RESP 16–18; O2SAT 95–97
[2017-07-19 04:08] LABS: BASOPHILS % (AUTO) 0.1 % (0-3); EOSINOPHILS % (AUTO) 2.7 % (0-5); MONOCYTES % (AUTO) 8.8 % (4-12); Mean Corpuscular Hemoglobin 29.3 pg (27.0-35.0); Mean Corpuscular Volume 92.2 fL (81-100); NEUTROPHILS % (AUTO) 75.5 % (40-74); Platelet Count 205 bil/L (150-400)
--- NOTE | 2017-07-19 04:22 | NUR ---
Urine output/Skin 4200mL medium-red urine output via cuellar cath this shift with a few small clots noted. Per Dr. Coronel's rec, SQ heparin held r/t hematuria. Hgb down slightly, 10.5 this AM. Barrier wipes and nystatin powder used in rehana area for redness/rash.
[2017-07-19] MEDS: cefTRIAXone Inj 2,000 MG in Dextrose 5% Minibag Plus 50 ML IV SCH (08:06)
[2017-07-19] MEDS: Insulin LISPRO 300 Unit/3 mL Inj SUBQ SCH ×4 (08:07→22:25)
[2017-07-19] MEDS: Heparin 5,000 Unit/mL Inj SUBQ SCH ×2 (08:26→16:30)
[2017-07-19] MEDS: Nystatin 100,000 Unit/Gm 15 Gm Powder TOPICAL SCH ×2 (08:30→20:22)
--- NOTE | 2017-07-19 10:58 | NUR ---
Spoke with pt's to clarify that they live in a 32ft travel trailer in the [facility].
--- NOTE | 2017-07-19 15:37 | NUR ---
Incontinence of Stool Pt has had 5 episodes of incontinence of stool this shift. Pt does not appear to notice that he has been incontinent, he does not inform nursing staff that he has a need/urge to go, and does not inform nursing staff after he has stooled. The last episode, pt was working with PT and stooled in his brief with no communication to PT that he felt the urge to go/or had already stooled. MD aware and recommends nursing staff start scheduled toileting for pt.
--- NOTE | 2017-07-19 16:07 | PCM.PNMED ---
Subjective Date of Service Jul 19, 2017 Subjective Patient was seen and examined today. He is resting in bed and complains of loose stools. Nursing, no acute overnight events though there was concern of his blood tinged urine in the Damon bag. Exam Vital Signs Vital Sign - Last Date Time Temp Pulse Resp B/P Pulse Ox O2 Delivery O2 Flow Rate FiO2 07/19/17 12:35 36.9 73 18 142/77 97 Room Air Intake and Output 07/18/17 07/18/17 07/19/17 Cumulative From/Thru 15:00 23:00 07:00 07/16/17 11:48 - 07/19/17 05:17 Intake Total 70 ml 950 ml 880 ml 4645 ml Output Total 5600 ml 4200 ml 45779 ml Balance 70 ml -4650 ml -3320 ml -8830 ml Intake Oral 950 ml 880 ml 2630 ml IV Total 70 ml 2015 ml Output Urine Total 5600 ml 4200 ml 66640 ml # Bowel Movements 1 1 Exam General: No acute distress, well-developed, well-nourished, appropriately interactive HEENT: Normocephalic, atraumatic. External ears without defect. Pupils equal, round, and reactive to light. Neck: Supple with full range of motion. No jugular venous distension. No bruits. No lymphadenopathy or thyromegaly. Cardiovascular: Regularly irregular with systolic ejection murmur Pulmonary: Clear to auscultation bilaterally with no crackles, wheezes, or rhonchi. Normal respiratory effort with no use of accessory muscles. Abdomen: Abdomen is much softer than yesterday, palpable mass no longer present , and remains nontender Extremities: No clubbing, cyanosis, edema, or lymphadenopathy appreciated. Skin: Inguinal area appears less erythematous, nystatin powder in place Neurological: Cranial nerves grossly intact. Normal muscle strength, tone, and bulk. Psychiatric: Normal mood and affect. Alert and oriented to person, place, and time. IVs and Medications Medications Reviewed: Medications were reviewed in detail Lab and Diagnostics Result Diagram: 07/19/17 03407/19/17 034 Microbiology One of 2 blood cultures positive for gram-positive cocci, likely a contaminated sample. Gonorrhea and Chlamydia serology negative. X-Rays, CTs and MRIs X-RAY RIGHT ELBOW, TWO VIEWS IMPRESSION: Multiple screws projecting over the soft tissues. No acute fracture. No osseous lesion. If clinical suspicion and/or symptoms persist, further assessment with repeat plainfilms, or advanced imaging (e.g., CT, MRI, or bone scan) may be helpful for further assessment. Approved by: Nisha Lui M.D. on 07/16/2017 at 14:59 X-RAY CHEST ONE VIEW, PORTABLE IMPRESSION: No acute process. Approved by: Nisha Lui M.D. on 07/16/2017 at 12:13 Additional Diagnostics Renal artery ultrasound performed 07/17/2017 IMPRESSION: Moderate hydronephrosis with a grossly distended urinary bladder. The Damon catheter is regarded to be nonfunctional. Poor visualization of numerous arterial structures. The study is nondiagnostic for renal artery stenosis. Nonobstructing left-sided kidney stones are seen. CT abdomen and pelvis IMPRESSION: 1. Moderate to bilateral renal obstruction, hydroureter bilaterally, prominently distended bladder and enlarged prostate. Damon catheter position was questioned. These findings are called to the clinician in charge of the patient at the time of this dictation. 2. Multiple colonic diverticula without diverticulitis. No ascites. Dictated by: Demetri Dozier M.D. on 07/18/2017 at 15:29 Assessment & Plan Dimitri Gifford is a 76-year-old man with past medical history remarkable for hypertension and type II diabetes mellitus [id number] who presented to the [facility] ED by EMS after a ground-level fall and unable to get up. Acute hypoglycemia in chronic type II diabetes mellitus [id number], present on admission, stable - Glucose of 56 noted at admission, 196 today - The patient admits to being recently started on oral anti-hyperglycemics glipizide, low blood glucose could explain weakness and difficulty ambulating however patient explains that this has been a chronic ongoing process of worsening weakness and difficulty ambulating - IV dextrose given an ED, with subsequent improvement in blood glucose - Holding glipizide - Low-dose correction scale insulin while inpatient and monitor for hypoglycemic episodes - Diabetic diet - A1c 5.6 - Monitor Acute cellulitis of the inguinal and genitals, stable - WBC normalized and erythema is decreasing - Continue Rocephin for possible cellulitis - UA was negative for signs of infection, however nursing staff noted possible purulent drainage around Damon catheter - Chlamydia and gonorrhea NAAT resulted negative - Nystatin powder for possible yeast infection Acute kidney injury with Acute hematuria, active - Creatinine of 2 on admission, records from [place] contain labs performed on 2016 and demonstrate BUN 29, creatinine 1.21, urinary microalbumin 10.7, urinary creatinine 47 - Blood-tinged urine in Damon bag, likely secondary to traumatic Damon placement /severe urinary bladder distention - Patient likely has some chronic kidney disease given long-standing hypertension and type II diabetes mellitus Urinary tract obstruction, unknown chronicity, present on admission, ongoing -Damon catheter repositioned last night after CT scan and found it to be positioned in the prostate. Promptly drained 5 L within an hour, and 4-5 L over the next 12 hours. -I spoke briefly with Dr. Nelson of urology on the phone who recommended that we leave the Damon in upon discharge and have patient follow-up with the urology clinic in 1-2 weeks Chronic deconditioning - Patient says that the only thing that brought him into the hospital was his inability to get up after falling, the patient states that he does not use a cane or walker to ambulate but he believes that he should at least use a cane - PT, OT consult to evaluate. - Social work contacted to evaluate for home health Acute on chronic hypertension - Patient describes a baseline blood pressure above 150 with previous regular highs in the 190s - Systolic blood pressure of up to 190 on admission - Since his bladder is been decompressed, his blood pressure has been in the 130s, and his antihypertensive meds were held this morning - Patient is on lisinopril hydrochlorothiazide which will be held given the AK I - Labetalol IV 10 mg available when necessary for systolic blood pressures greater than 160 if pulse is greater than 70 - Started on amlodipine 10mg QD and labetalol 100 mg by mouth twice a day Acute elevated troponins of unknown significance - Likely related to elevated creatinine which is possibly baseline - Patient denies chest pain, nausea, shortness of breath - Monitor Fracture of right humerus, chronic, present on admission, stable -Patient had internal fixation performed years ago which failed at some point. He says that [facility] but [facility] given his current comorbidities. -Two-view x-ray performed -Consider ortho consult Disposition: Anticipate discharge to home within the next 1-2 days with home health if PT/OT say this is safe DVT prophylaxis: Heparin GI prophylaxis: None indicated CODE STATUS is full code GI Prophylaxis: Not indicated VTE Prophylaxis: Sub-Q Heparin (Unfractionated) VTE Mechanical Devices: Intermittant Pneumatic CD Resuscitation Status: CPR: Attempt Resuscitation Attending Statement The patient was seen and examined together with Dr. Medina on 07/19/17 and I have added additional information to the note above. Zack Medina DO Jul 19, 2017 16:07 Chelo Martinez DO Jul 20, 2017 15:04
--- NOTE | 2017-07-19 20:20 | DRSVH ---
PROCEDURE: X-RAY RIGHT HUMERUS, MINIMUM TWO VIEWS ([id number]) INDICATIONS: fracture TECHNIQUE: 2 views of the humerus were acquired. COMPARISON: [facility], CR, XR ELBOW 2VW RT, 07/16/2017, 14:46. [facility], CR, HUMERUS MIN 2VW (RT), 07/16/2009, 12:31. FINDINGS: Bones: There is fracture involving the mid to distal humeral shaft with roughly 2.8 cm of diastases i nvolving the proximal and distal fracture fragments as well as severe lateral angulation of the dista l fracture component. Fixation plate is present and there are multiple fixation screws involving the distal aspect of the fixation hardware which are fractured and displaced within the soft tissues. B marybeth excrescence about the proximal humeral metadiaphysis likely a small osteochondroma. Bones are di ffusely osteopenic. Soft tissues: No suspicious soft tissue calcifications. IMPRESSION: 1. Fracture involving the mid to distal right humerus as described above. It is indeterminate as to whether the findings represent an acute fracture or chronic nonunion. Recommend comparison with prio r radiographs if available as well as clinical assessment to exclude acute fracture. 2. Fracture fixation hardware failure involving the distal aspect of the fixation plate and screws. M ultiple surgical screw fractures are present as well as displaced surgical screws within the soft tis sues. 3. 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 Dictated by: Wood Bell Keisha Interpreted: Tammie Malcolm MD on 07/19/2017 at 16:41 Approved by: Tammie Malcolm M.D. on 07/19/2017 at 20:18
[2017-07-20] MEDS: Heparin 5,000 Unit/mL Inj SUBQ SCH ×2 (00:17→08:30)
[2017-07-20 03:49] VITALS: BP 129/76; PULSE 55; RESP 18; O2SAT 97
[2017-07-20 04:13] LABS: BASOPHILS % (AUTO) 0.1 % (0-3); EOSINOPHILS % (AUTO) 3.7 % (0-5); MONOCYTES % (AUTO) 8.3 % (4-12); Mean Corpuscular Hemoglobin 29.6 pg (27.0-35.0); Mean Corpuscular Volume 92.2 fL (81-100); NEUTROPHILS % (AUTO) 75.5 % (40-74); Platelet Count 202 bil/L (150-400)
--- NOTE | 2017-07-20 05:10 | NUR ---
Incontinence/cuellar/BP Pt continues to be incontinent of soft formed stool. 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 Cuellar continues to drain red-tinged urine with few small clots. BP WNL, pt slept most of shift.
[2017-07-20 05:43] VITALS: PULSE 70
[2017-07-20 07:58] VITALS: PULSE 100
[2017-07-20 08:26] VITALS: BP 119/76; PULSE 98; RESP 18; O2SAT 97
[2017-07-20] MEDS: Insulin LISPRO 300 Unit/3 mL Inj SUBQ SCH ×2 (09:01→13:10)
[2017-07-20] MEDS: cefTRIAXone Inj 2,000 MG in Dextrose 5% Minibag Plus 50 ML IV SCH (09:02)
[2017-07-20] MEDS: Nystatin 100,000 Unit/Gm 15 Gm Powder TOPICAL SCH (09:02)
--- NOTE | 2017-07-20 10:30 | NUR ---
Evaluation completed. Please go to "Notes" then click on "Assessments and Notes" (bottom left corner of screen). Then select appropriate discipline tab on top of screen.
--- NOTE | 2017-07-20 10:40 | NUR ---
CORRECTION TRANSFER : Called and left message for Esperanza Johnson regarding acceptance, spoke with Meg career services coordinator at [facility] and they can accept patient today with to follow Updated CHIP DRIER
--- NOTE | 2017-07-20 11:56 | NUR ---
Social Work: Readiness for Discharge/Multidisciplinary Rounds D: Per EMR review, pt may be medically stable for discharge today. Patient's had expressed that she does not feel comfortable taking the patient home considering the diarrhea he had yesterday. Patient has been accepted at [facility] with Dr. Multani to follow for a short SNF stay. COMMODITY MERCHANT met with the patient, his daughter and at bedside. The patient adamantly opposes going to a halfway facility and states "I am going home." Patient's does not object to this but they are concerned about how to manage his foly cath. Patient has been cleared by OT for discharge home with good balance. PT has recommended SNF based only on the fact that the patient has stairs. COMMODITY MERCHANT has requested PT work with the patient today to complete stair assessment. COMMODITY MERCHANT spoke with resident provider about pt and 's preferences and concerns. Provider is in agreement with a home plan and has placed a CM order for HH. COMMODITY MERCHANT reviewed this recommendation with the patient and family. They are in agreement with the plan to d/c home with a HH RN for foly cath teaching and education, diabetic education along with medication management and vital checks. COMMODITY MERCHANT provided the patient and the SILVERVUE TABLE for CHOICE LIST. Their preference is for [facility] . Their physical address is at the [facility] in [place] ([address] [place] [address] [address] Bedside RN is present at bedside who confirms that she will also be completing foly cath teaching and education with the patient's and daughter. t/c to Becca, Community liason with [facility], to provide referral and access. F2F completed A: Pt who is ambulating 65 feet with a FWW. Pt's daughter is obtaining the patient a FWW prior to d/c home. P: Anticipate pt to discharge home with [facility] for RN care; pt's and daughter to transport patient home. GERALD Morillo
--- NOTE | 2017-07-20 12:58 | PCM.DIMED ---
Zack Medina DO 07/20/17 1258: Discharge Instructions Date of Service Jul 20, 2017 Dates of Hospitalization Jul 16, 2017 at 14:55 Discharge Diagnosis Discharge Diagnosis Urinary tract obstruction Yeast infection Acute kidney injury Chronic deconditioning Medication Instructions Additional med instructions We are sending you home with Flomax 0.4 mg to help with your urinary flow. Please take one of these daily. We are also sending you with amlodipine 5 mg tablets. Please take 2 tablets daily. We are also giving you labetalol 100 mg tablets to take once in the morning and once at night. Continue to take your home medications as prescribed by your primary care physician. Diet Discharge Diet: Heart Healthy, Diabetic Activity Discharge Activity: Limited until seen by PCP Call your provider Call your provider for: Fever or Chills, Shortness of breath, Bleeding, Vomitting, Excessive diarrhea, Weakness (unilateral) Patient Instructions Patient Instructions We are sending you home with your Damon catheter in place. We are getting you a home health nurse to assist you with management of this. Urology recommends that you follow up with them at your earliest convenience. Please visit your primary care physician in the next 1-2 weeks. Please seek medical attention if you have abdominal pain or if your catheter stops putting out urine. Follow-up Provider: Los Bowman MD Follow-up with PCP in: 1 week Provider: [facility]OLOGY CLINIC Follow-up in: 1 week Chelo Martinez DO 07/20/17 1442: Discharge Instructions Attending's Statement The patient was seen and examined together with Dr. Medina on 07/20/17 and I agree with the history, exam and plan as outlined in the note above. Zack Medina DO Jul 20, 2017 12:58 Chelo Martinez DO Jul 20, 2017 14:42
[2017-07-20] MEDS ORDERED: LABE100T4 PO (13:05)
[2017-07-20] MEDS ORDERED: AMLO5TAB2 PO (13:05)
[2017-07-20] MEDS ORDERED: TAMS0.4C98 PO (13:05)
[2017-07-20 13:19] VITALS: BP 119/68; PULSE 72; RESP 22; O2SAT 96
--- NOTE | 2017-07-20 15:26 | NUR ---
Discharge of patient Reviewed discharge instructions with patient and patient's . Both verbalized understanding. Pt Discharged via wheelchair with prescriptions and instructions. IV and Telemetry previously discontinued. Pt discharged with Damon catheter per MD's order. Pt left hospital with to home with Home health care.
--- NOTE | 2017-07-20 20:03 | PCM.DC.MED ---
Discharge Summary Date of Service Jul 20, 2017 Dates of Hospitalization Date of Hospital Admission Jul 16, 2017 at 14:55 Date of Discharge: Jul 20, 2017 Providers: Admitting Physician: Chelo Martinez DO [facility]: Chelo Martinez DO Diagnosis at Time of Discharge Diagnosis at Time of Discharge Urinary tract obstruction Yeast infection Acute kidney injury Chronic deconditioning Consultations Urology, Dr. Mayo Procedures XRay, CTs & MRIs X-RAY RIGHT ELBOW, TWO VIEWS IMPRESSION: Multiple screws projecting over the soft tissues. No acute fracture. No osseous lesion. If clinical suspicion and/or symptoms persist, further assessment with repeat plainfilms, or advanced imaging (e.g., CT, MRI, or bone scan) may be helpful for further assessment. Approved by: Nisha Lui M.D. on 07/16/2017 at 14:59 X-RAY CHEST ONE VIEW, PORTABLE IMPRESSION: No acute process. Approved by: Nisha Lui M.D. on 07/16/2017 at 12:13 Other Diagnostics Renal artery ultrasound performed 07/17/2017 IMPRESSION: Moderate hydronephrosis with a grossly distended urinary bladder. The Damon catheter is regarded to be nonfunctional. Poor visualization of numerous arterial structures. The study is nondiagnostic for renal artery stenosis. Nonobstructing left-sided kidney stones are seen. CT abdomen and pelvis IMPRESSION: 1. Moderate to bilateral renal obstruction, hydroureter bilaterally, prominently distended bladder and enlarged prostate. Damon catheter position was questioned. These findings are called to the clinician in charge of the patient at the time of this dictation. 2. Multiple colonic diverticula without diverticulitis. No ascites. Dictated by: Demetri Dozier M.D. on 07/18/2017 at 15:29 Brief History Dimitri Gifford is a 76-year-old man with past medical history remarkable for hypertension and type II diabetes mellitus [id number] who presented to the [facility] ED by EMS after a ground-level fall and unable to get up. The patient lives alone and does not use a walker or cane to ambulate and states that he has been having increasing difficulty with ambulation. His blood glucose level was 56 on admission and he received IV dextrose with an adequate response in his glucose levels. He was started on a low-dose correctional scale of insulin in the hospital. Patient noted that he had been experiencing increased urinary frequency and bedwetting for the last week or so but denies any dysuria or penile discharge. A Damon catheter was placed and he was noted to have a nonpainful erythematous rash in his inguinal area bilaterally which resolved by treatment with topical nystatin powder. During the first couple days of his stay his Damon was putting out about 1000 mL of urine daily but he had a large nonpainful palpable mass in his abdomen and was hypertensive up into the 190s systolic. A renal ultrasound was performed to evaluate for renal artery stenosis and it was discovered that he had a large distended urinary bladder. His catheter was flushed and continued output at its normal rate. He later had a CT of his abdomen and pelvis which revealed a severely distended bladder with bilateral hydronephrosis and hydroureter, and his Damon catheter was seen to be positioned in the prostate. Nurse repositioned catheter and promptly drained over 5 L within 1 hour, and about 8 L within 24 hours and the abdominal mass was no longer palpable after this. Patient received an x-ray of his right humerus which showed that his surgical internal fixation had failed with dislodgment of the distal screws. Patient is not interested in having this revised at this time and would like to wait and be evaluated at the [facility] so orthopedics was not consulted. I did have a phone discussion with of urology about his urinary obstruction and she recommended that the Damon remain in place upon discharge and for him to follow-up with urology in 1-2 weeks. On day of discharge, patient was hemodynamically stable and ambulating with walker. A referral was placed for him to receive home health for assistance with his diabetes and Damon catheter. Hospital Course See below for detailed hospital course: Acute hypoglycemia in chronic type II diabetes mellitus [id number], present on admission, stable - Glucose of 56 noted at admission, 177 on day of discharge - The patient admits to being recently started on oral anti-hyperglycemics glipizide, low blood glucose could explain weakness and difficulty ambulating however patient explains that this has been a chronic ongoing process of worsening weakness and difficulty ambulating - IV dextrose given an ED, with subsequent improvement in blood glucose - Holding glipizide - Low-dose correction scale insulin implemented during his stay - A1c 5.6 Acute east infection of the inguinal and genitals, resolved - WBC normalized and erythema no longer present - UA was negative for signs of infection, however nursing staff noted possible purulent drainage around Damon catheter - Chlamydia and gonorrhea NAAT resulted negative - Nystatin powder Acute kidney injury with Acute hematuria, active - Creatinine of 2 on admission, records from [facility] contain labs performed on 2016 and demonstrate BUN 29, creatinine 1.21, urinary microalbumin 10.7, urinary creatinine 47 - Creatinine 1.95 on day of discharge - Blood-tinged urine in Damon bag, likely secondary to traumatic Damon placement /severe urinary bladder distention - Patient likely has some chronic kidney disease given long-standing hypertension and type II diabetes mellitus Urinary tract obstruction, unknown chronicity, present on admission, ongoing -Damon catheter repositioning drained 5-8 L of blood-tinged urine -I spoke briefly with Dr. Nelson of urology on the phone who recommended that we leave the Damon in upon discharge and have patient follow-up with the urology clinic in 1-2 weeks -Home health to assist with Damon management - Started on 0.4 mg Flomax daily Chronic deconditioning, and on admission, ongoing - Patient says that the only thing that brought him into the hospital was his inability to get up after falling, the patient states that he does not use a cane or walker to ambulate but he believes that he should at least use a cane -Home health to evaluate Acute on chronic hypertension, present on admission, stable - Patient describes a baseline blood pressure above 150 with previous regular highs in the 190s - Systolic blood pressure of up to 190 on admission - Since his bladder is been decompressed, his blood pressure has been in the 130s - Patient is on lisinopril/hydrochlorothiazide - Started on amlodipine 10mg QD and labetalol 100 mg by mouth twice a day Acute elevated troponins of unknown significance, present on admission, resolved - Likely related to elevated creatinine which is possibly baseline - Patient denied chest pain, nausea, shortness of breath Fracture of right humerus, chronic, present on admission, stable -Patient had internal fixation performed years ago which failed at some point. He says that [facility] but [facility] given his current comorbidities. -Two-view x-ray performed demonstrating nonunion and failure of internal fixation - Patient does not wish to have an altered workup at this time Disposition: Home CODE STATUS is full code Exam Vital Signs (Last) Date Time Temp Pulse Resp B/P Pulse Ox O2 Delivery O2 Flow Rate FiO2 07/20/17 13:49 Room Air 07/20/17 13:19 37.1 72 22 119/68 96 Exam General: No acute distress, well-developed, well-nourished, appropriately interactive HEENT: Normocephalic, atraumatic. External ears without defect. Pupils equal, round, and reactive to light and accommodation. Anicteric sclerae, moist conjunctivae, and no lid lag. Neck: Supple with full range of motion. No jugular venous distension. No bruits. No lymphadenopathy or thyromegaly. Cardiovascular: Regular rate and rhythm with no murmurs, rubs, or gallops appreciated Pulmonary: Clear to auscultation bilaterally with no crackles, wheezes, or rhonchi. Normal respiratory effort with no use of accessory muscles. Abdomen: Bowel tones present. Soft, nontender, nondistended. No hepatosplenomegaly or masses appreciated. Extremities: Crepitus and laxity of middle right humerus secondary to failed internal fixation Skin: Erythema of girdle/inguinal region resolved Neurological: Cranial nerves grossly intact. Normal muscle strength, tone, and bulk. Psychiatric: Normal mood and affect. Alert and oriented to person, place, and time. Test 07/16/17 11:30 07/16/17 12:35 07/16/17 13:04 07/17/17 12:15 Hemoglobin A1c 5.6% (4.8-5.6) Magnesium Level 2.0mg/dL (1.6-2.6) Lactic Acid Level 0.9mmol/L (0.4-2.0) Urine Color Yellow (YELLOW) Urine Appearance Hazy (CLEAR,HAZY) Urine pH 5.0 (5.0-8.0) Urine Specific [place] 1.012 (1.003-1.035) Urine Protein 30mg/dL (NEG,TRACE) Urine Glucose (UA) Negativemg/dL (NEGATIVE) Urine Ketones Negativemg/dL (NEGATIVE) Urine Occult Blood Large (NEGATIVE) Urine Nitrite Negative (NEGATIVE) Urine Bilirubin Negative (NEGATIVE) Urine Urobilinogen Normalmg/dL (NORMAL) Urine Leukocyte Esterase Negative (NEGATIVE) Urine RBC Packed/hpf (0-2) Urine WBC 0-5/hpf (0-5) Urine Epithelial Cells Few/hpf (NONE-MOD) Urine Crystals None seen (NONE SEEN) Urine Bacteria None/hpf (NONE-FEW) Urine Hyaline Casts None/lpf (NONE) Urine Granular Casts None seen (NONE SEEN) Urine Waxy Casts None seen (NONE SEEN) Urine Red Blood Cell Casts None seen (NONE SEEN) Urine White Blood Cell Casts None seen (NONE SEEN) Urine Mucus None seen (None Seen) Urine Trichomonas None seen (NONE SEEN) Urine Yeast None (NONE SEEN) Urinalysis Comment None Urine Culture Reflexed Not indicated Urine Random Creatinine 48mg/dL (22-328) Urine Random Total Protein 87mg/dL (0-15) Urine Protein/Creatinine Ratio 1.81 (0-200) Chlamydia trachomatis DNA (JILLIAN) Negative (Negative) Neisseria gonorrhoeae DNA (JILLIAN) Negative (Negative) Troponin T 0.038ug/L (0.0-0.011) Procalcitonin 0.17ng/mL (0.00-0.08) Test 07/20/17 03:55 White Blood Count 8.8th/mm3 (3.8-10.1) Red Blood Count 3.48mil/mm3 (4.40-5.80) Hemoglobin 10.3g/dL (13.8-17.2) Hematocrit 32.1% (41.0-50.0) Mean Corpuscular Volume 92.2fL (81-100) Mean Corpuscular Hemoglobin 29.6pg (27.0-35.0) Mean Corpuscular Hemoglobin Concent 32.1% (32.0-37.0) Red Cell Distribution Width 15.8% (12.3-15.4) Platelet Count 202bil/L (150-400) Neutrophils (%) (Auto) 75.5% (40-74) Lymphocytes (%) (Auto) 12.1% (14-46) Monocytes (%) (Auto) 8.3% (4-12) Eosinophils (%) (Auto) 3.7% (0-5) Basophils (%) (Auto) 0.1% (0-3) Sodium Level 143mEq/L (134-144) Potassium Level 4.7mEq/L (3.5-5.2) Chloride Level 109mEq/L (97-108) Carbon Dioxide Level 21mmol/L (18-29) Blood Urea Nitrogen 57mg/dL (8-27) Creatinine 1.95mg/dL (0.76-1.27) Estimat Glomerular Filtration Rate 36mL/min (>59) Glucose Level 177mg/dL (60-99) Calcium Level 8.1mg/dL (8.5-10.1) Total Bilirubin 0.3mg/dL (0.0-1.2) Aspartate Amino Transf (AST/SGOT) 14U/L (0-50) Alanine Aminotransferase (ALT/SGPT) 17U/L (0-44) Alkaline Phosphatase 59U/L (25-160) Total Protein 5.7g/dL (6.4-8.4) Albumin 3.4g/dL (3.4-5.0) Microbiology Results One of 2 blood cultures positive for gram-positive cocci, likely a contaminated sample. Gonorrhea and Chlamydia serology negative. Discharge Medications Discharge Medications Amlodipine (Amlodipine) 5 Mg Tablet 10 MG PO DAILY Prescribed by: ZACK PEREZ DO Calcium Carbonate (Calcium Carbonate) 600 Mg Tablet 600 MG PO QAM (Reported) Glipizide (Glipizide) 10 Mg Tablet 10 MG PO BIDWM (Reported) Labetalol (Labetalol) 100 Mg Tablet 100 MG PO BID Prescribed by: ZACK PEREZ DO Lisinopril / HCTZ 20-25 mg (Lisinopril / HCTZ 20-25 mg) 1 Each Tablet 1 EACH PO QAM (Reported) Metformin (Glucophage) 1,000 Mg Tablet 1,000 MG PO BIDWM (Reported) Simvastatin (Simvastatin) 10 Mg Tablet 10 MG PO HS (Reported) Tamsulosin (Flomax) 0.4 Mg Capsule 0.4 MG PO DAILY Prescribed by: ZACK PEREZ DO Additional med instructions We are sending you home with Flomax 0.4 mg to help with your urinary flow. Please take one of these daily. We are also sending you with amlodipine 5 mg tablets. Please take 2 tablets daily. We are also giving you labetalol 100 mg tablets to take once in the morning and once at night. Continue to take your home medications as prescribed by your primary care physician. Followup Plan Discharge Diet: Heart Healthy, Diabetic Discharge Activity: Limited until seen by PCP Patient Instructions We are sending you home with your Damon catheter in place. We are getting you a home health nurse to assist you with management of this. Urology recommends that you follow up with them at your earliest convenience. Please visit your primary care physician in the next 1-2 weeks. Please seek medical attention if you have abdominal pain or if your catheter stops putting out urine. Follow-up Provider: Los Bowman MD Follow-up with PCP in: 1 week Provider: [facility]OLOGY [facility] Follow-up in: 1 week Time spent Greater than 35 minutes Attending Statement The patient was seen and examined together with Dr. Perez on 07/20/17 and I have added additional information to the note above. copies to: Los Bowman MD; [facility], Zack Perez DO Jul 20, 2017 20:03 Chelo Martinez DO Jul 21, 2017 13:15
== END 2017-07-20 15:15 | disposition home or self-care (01) | DRG 638 ==
LOC: SED 11:35 → PCC 14:55 → INTOOBSV 14:55 → OBSVTOIN 14:55
PROVIDERS: ADMIT Neuromusculoskeletal Medicine & OMM; ATTEND Neuromusculoskeletal Medicine & OMM
DX: E11.649 Type 2 diabetes mellitus with hypoglycemia without coma (principal); L03.314 Cellulitis of groin; B37.49 Other urogenital candidiasis; N13.30 Unspecified hydronephrosis; N17.9 Acute kidney failure, unspecified; R32 Unspecified urinary incontinence; I10 Essential (primary) hypertension; Z88.0 Allergy status to penicillin; Z87.81 Personal history of (healed) traumatic fracture